=== PATIENT | male | born 1945 | race Caucasian/White ===

== ENCOUNTER 2022-05-13 07:52 | Day surgery (SDC) | payer MEDICARE, BC ==
[~2022-05-13 07:52] MED LIST: Metoclopramide 10 MG/2 ML SDV IV PRN; Sodium Chloride 0.9% 1,000 ML IV SCH
[2022-05-13 09:58] VITALS: BP 149/70; PULSE 61
== END 2022-05-13 11:00 | disposition home or self-care (01) ==
LOC: LB.SDS 07:52
PROVIDERS: ATTEND Surgery
DX: K52.9 Noninfective gastroenteritis and colitis, unspecified (principal); I10 Essential (primary) hypertension; M19.90 Unspecified osteoarthritis, unspecified site; Z79.899 Other long term (current) drug therapy
CPT/HCPCS: 45380; 82947; J2704; J7030

== ENCOUNTER 2024-04-06 17:33 | Emergency (ER) | payer MEDICARE, BC ==
[2024-04-06] MEDS ORDERED: Sodium Chloride 0.9% 10 ML Syringe FLUSH PRN (18:26)
[2024-04-06 18:42] LABS: BASOPHILS ABSOLUTE AUTO 0.01 K/uL (0.02-0.10); BASOPHILS PERCENT AUTO 0.1 % (0.0-0.5); EOSINOPHILS PERCENT AUTO 0.8 % (1.0-5.0); HEMATOCRIT 42.6 % (40.0-54.0); HEMOGLOBIN 14.1 g/dL (13.0-18.0); LYMPHOCYTES ABSOLUTE AUTO 1.26 K/uL (1.50-4.00); LYMPHOCYTES PERCENT AUTO 10.5 % (20.0-40.0); MEAN CORPUSCULAR HEMOGLOBIN 28.8 pg (27.0-32.0); MEAN CORPUSCULAR HGB CONC 33.1 g/dL (31.0-35.0); MEAN CORPUSCULAR VOLUME 87 fL (76-96); MONOCYTES ABSOLUTE AUTO 0.64 K/uL (0.20-0.80); MONOCYTES PERCENT AUTO 5.3 % (3.0-10.0); NEUTROPHILS ABSOLUTE AUTO 9.99 K/uL (2.00-7.50); NEUTROPHILS PERCENT AUTO 83.3 % (45.0-70.0); PLATELET COUNT,PLT 194 K/uL (150-400); RED CELL DISTRIBUTION WIDTH 14.3 % (11.0-16.0)
[2024-04-06 18:54] LABS: INR 1.1 (1.0-3.5)
[2024-04-06 18:56] LABS: PROTHROMBIN TIME 11.6 sec (9.0-11.5)
[2024-04-06 18:59] LABS: A/G RATIO 1.2 (0.8-2.0); ALBUMIN 3.8 g/dL (3.4-5.0); ANION GAP 14.8 mmol/L (5.0-15.0); BILIRUBIN TOTAL 0.3 mg/dL (0.0-1.0); CALCIUM 8.5 mg/dL (8.5-10.1); CARBON DIOXIDE,CO2 23.6 mmol/L (21.0-32.0); EST CRCL DRUG DOSING (CG) 57.95 mL/min; POTASSIUM,K 3.4 mmol/L (3.5-5.1)
[2024-04-06] MEDS: Ondansetron 4 MG/2 ML SDV IVPUSH ONE (19:03)
[2024-04-06] MEDS: Morphine 2 MG/ML SYRINGE IVPUSH ONE ×3 (19:05→21:30)
[2024-04-06] MEDS: Morphine 2 MG/ML SYRINGE ONE ×2 (20:18→21:33)
[2024-04-06 22:16] VITALS: BP 138/70; PULSE 100
== END 2024-04-06 22:00 ==
LOC: SUPCPDRO 17:33 → LB.ED 17:33
DX: S22.41XA Multiple fractures of ribs, right side, initial encounter for closed fracture (principal); S72.001A Fracture of unspecified part of neck of right femur, initial encounter for closed fracture; E11.9 Type 2 diabetes mellitus without complications; I10 Essential (primary) hypertension; Z79.899 Other long term (current) drug therapy; W19.XXXA Unspecified fall, initial encounter
CPT/HCPCS: 36415; 70450; 71045; 72125; 73030; 73502; 80053; 85025; 85610; 96374; 96375; 96376; 99284; J2270; J2405; 99285